=== PATIENT | male | born 1975 | race Caucasian/White ===

== ENCOUNTER 2024-06-25 07:25 | Outpatient (RCR) | payer OTHER, SELFPAY | END 2024-10-23 23:59 | disposition home or self-care (01) | PROVIDERS: Visit Provider Podiatrist | DX: M76.60 Achilles tendinitis, unspecified leg (principal); R26.9 Unspecified abnormalities of gait and mobility; M79.673 Pain in unspecified foot; Z51.89 Encounter for other specified aftercare | CPT/HCPCS: 97110; 97161 ==